=== PATIENT | female | born 1995 | race Caucasian/White ===

== ENCOUNTER 2018-02-04 22:42 | Emergency (ER) | payer SELFPAY ==
--- NOTE | 2018-02-05 00:16 | EDM.PDOC ---
ED HPI GENERAL MEDICAL PROBLEM - General Chief Complaint: Neuro Symptoms/Deficits Stated Complaint: DIZZY SPELLS Time Seen by Provider: 02/04/18 23:46 Source of Information: Reports: Patient History Limitations: Reports: No Limitations - History of Present Illness INITIAL COMMENTS - FREE TEXT/NARRATIVE: The patient states that she felt dizzy and shaky this evening while at work. By dizzy, she means both lightheaded and vertiginous. She states that she saw double of her coworkers, and also felt like the room was spinning, however, it was not positional, and came and went unrelated to her movement. She had associated chest pain, and the sensation of walking on rubber legs, although those symptoms have since resolved. No tingling or numbness to her face, hands, or feet. No throat tightness. No dyspnea. No abdominal pain. No decreased hearing, no tinnitus, no ear pain, and no recent illness. She states that she has had near-daily headaches for the past 4 months, for which she takes ibuprofen or Aleve. The patient states that she had ovarian states similar symptoms over the past year. She states that she saw someone at a walk-in clinic in [place] about 6 or 7 weeks ago. She states that no tests were done, but that she was diagnosed with TMJ. She states that she was prescribed an anti-dizziness medicine, which helped with her dizziness, but not the headache. She was referred to a maxillofacial surgeon, however, did not follow-up in this regard. The patient reports mild bilateral jaw pain, but points to her bilateral masseter muscles, not the TMJ joint. She acknowledges that she chews gum. Here in the ED, it is noted that the patient's oxygen saturation is 100% on room air. The patient's PCP is Dr. Garcia Arriola, from [place], who prescribes fluoxetine for the the patient's depression, anxiety, and PTSD. TMJ areas Pain Score (Numeric/FACES): 4 - Related Data Allergies Allergy/AdvReac Type Severity Reaction Status Date / Time No Known Allergies Allergy Verified 02/04/18 23:00 Home Meds: Home Meds FLUoxetine HCl [Fluoxetine HCl] 40 mg PO DAILY 02/04/18 [History] Past Medical History Psychiatric History: Reports: Anxiety, Depression, PTSD - Past Surgical History HEENT Surgical History: Reports: Myringotomy w Tube(s) (bilateral) Social & Family History - Family History Family Medical History: Noncontributory - Tobacco Use Smoking Status *Q: Never Smoker - Caffeine Use Caffeine Use: Reports: Coffee, Soda - Alcohol Use Alcohol Use History: Yes Alcohol Use Frequency: Socially - Recreational Drug Use Recreational Drug Use: No - Living Situation & Occupation Living situation: Reports: , with Significant Other (Boyfriend) Occupation: Employed ([email or web address] + [employer]) ED ROS GENERAL - Review of Systems Review Of Systems: ROS reveals no pertinent complaints other than HPI. ED EXAM, GENERAL - Physical Exam Exam: See Below Exam Limited By: No Limitations General Appearance: Alert, WD/WN, No Apparent Distress Eye Exam: Bilateral Eye: EOMI, Normal Inspection Ears: Normal External Exam, Normal Canal, Hearing Grossly Normal, Normal TMs Nose: Normal Inspection, Normal Mucosa, No Blood Throat/Mouth: Normal Inspection, Normal Lips, Normal Teeth, Normal Gums, Normal Oropharynx, Normal Voice, No Airway Compromise Head: Atraumatic, Normocephalic Neck: Normal Inspection, Supple, Non-Tender, Full Range of Motion. No: Lymphadenopathy (L), Lymphadenopathy (R) Respiratory/Chest: No Respiratory Distress, Lungs Clear, Normal Breath Sounds, No Accessory Muscle Use Cardiovascular: Normal Peripheral Pulses, Regular Rate, Rhythm, No Edema, No Gallop, No JVD, No Murmur, No Rub Peripheral Pulses: 4+: Radial (L), Radial (R) GI/Abdominal: Normal Bowel Sounds, Soft, Non-Tender, No Organomegaly, No Distention, No Abnormal Bruit, No Mass (Female) Exam: Deferred Rectal (Female) Exam: Deferred Back Exam: Normal Inspection, Full Range of Motion, NT Extremities: Normal Inspection, Normal Range of Motion, No Pedal Edema, Normal Capillary Refill Neurological: Alert, Oriented, Normal Cognition, No Motor/Sensory Deficits Psychiatric: Normal Affect Skin Exam: Warm, Dry, Intact, Normal Color, No Rash Course - Vital Signs Last Recorded V/S: Last Vital Signs Temp 36.7 C 02/04/18 22:47 Pulse 80 02/04/18 22:47 Resp 18 02/04/18 22:47 BP 150/92 H 02/04/18 22:47 Pulse Ox 100 02/04/18 22:47 - Re-Assessments/Exams Free Text/Narrative Re-Assessment/Exam: 02/05/18 00:12 The patient reports recurrent episodes of dizziness and shakiness, chest pain, and the feeling of walking on rubber legs. We note that she is saturating 100% on room air. Her symptoms are most consistent with hyperventilation syndrome, most likely due to anxiety, especially since the patient has a history of anxiety. We discussed the option of testing for other causes of hyperventilation , however, the patient is comfortable that that is the explanation, therefore declined workup. I will discharge her home with the recommendation that she follow-up with her PCP in [place], to discuss other treatment options for her anxiety disorder, and whether her Prozac is adequately dosed. Departure - Departure Time of Disposition: 00:13 Disposition: Home, Self-Care 01 Condition: Good Clinical Impression: Hyperventilation syndrome - Discharge Information *PRESCRIPTION DRUG MONITORING PROGRAM REVIEWED*: Not Applicable *COPY OF PRESCRIPTION DRUG MONITORING REPORT IN PATIENT ANN: Not Applicable Instructions: Hyperventilation Referrals: PCP,Not In Area [Primary Care Provider] - Forms: ED Department Discharge Additional Instructions: You were seen in the emergency room for recurrent episodes of dizziness, shakiness, chest pain, and the feeling of walking on rubber legs. It was noted that your oxygen saturation was 100% on room air, indicating that you were hyperventilating. Based on your history and physical examination, you are MOST LIKELY experiencing a condition called hyperventilation syndrome. While hyperventilation can be caused by medical conditions, in the vast majority of cases, it is due to anxiety. We recommend that you follow-up with your PCP in [place] to discuss the current treatment of your anxiety. If any other problems, please do not hesitate to return to the ER.
== END 2018-02-05 00:25 | disposition home or self-care (01) ==
LOC: JD.ED 22:42
DX: F45.8 Other somatoform disorders (principal)
CPT/HCPCS: 99284